=== PATIENT | male | born 1955 | race Caucasian/White ===

== ENCOUNTER 2019-01-04 05:31 | Inpatient (IN) | payer OTHER ==
[2018-12-28 10:51] LABS: HEMATOCRIT 41.3 % (42.0-52.0); MCH 31.1 pg (26.0-34.0); MCV 91.6 fL (80.0-100.0); RBC 4.5 mil/uL (4.50-6.00); RDW 12.7 % (10.5-14.5); WBC 10.9 thou/uL (4.0-11.0)
[2018-12-28 11:08] LABS: ALBUMIN 4.2 g/dL (3.4-5.0); CALCIUM 9.1 mg/dL (8.5-10.1); POTASSIUM 4.2 mmol/L (3.5-5.1); PROTIME 10.1 Seconds (9.3-11.4)
[2018-12-28 11:39] LABS: URINE BILIRUBIN NEGATIVE (Negative); URINE BLOOD NEGATIVE (Negative); URINE CLARITY CLEAR; URINE COLOR YELLOW; URINE GLUCOSE-RANDOM* NEGATIVE (Negative); URINE KETONES NEGATIVE (Negative); URINE LEUKOCYTES-REFLEX NEGATIVE (Negative); URINE NITRITE-REFLEX NEGATIVE (Negative); URINE PROTEIN (DIPSTICK) NEGATIVE (Negative); URINE SPECIFIC GRAVITY <= 1.005 (1.005-1.035); URINE UROBILINOGEN 0.2 E.U./dl (0.2-1.0)
--- NOTE | 2018-12-28 12:56 | EKG ---
[place] [address] [facility] [employer] [place] [address] ELECTROCARDIOGRAM REPORT Name: CALI VALLECILLO Room #: PRE IN ..#: [id number] ������������������ Admission: ������������������ Attend Phys: Tonny Baires MD Discharge: ������������������ Date of : 55 Report #: [id number] ����������������������������������������������������������������� [id number] THIS REPORT FOR: //name// [facility] Test Date: 2018-12-28 Test Time: 10:56:38 Pat Name: CALI VALLECILLO Department: Room: Gender: Edge Gluer: TORRES ASENCIO : 1955 Requested By: Tonny Baires Order Number: [id number] : Sami Jacobs Measurements Intervals [place] Rate: 71 P: 63 VA: 152 QRS: 58 QRSD: 86 T: 61 QT: 413 QTc: 449 Interpretive Statements Sinus rhythm early transition Nonspecific ST/T wave changes No previous ECG available for comparison Electronically Signed On 12-28-2018 12:55:59 ENVIRONMENTAL ENGINEERING MANAGER by Sami Jacobs [email or web address] ��������������������������������������������� <ELECTRONICALLY SIGNED> ���������������������������������������� By: Sami Jacobs MD ��������������������������������������������� 12/28/18 1255 1056 1056 Sami Jacobs MD /VANESSA
[~2019-01-04] VITALS: Ht 170.2 cm; Wt 90.7 kg
[~2019-01-04 05:31] MED LIST: ACETAMINOPHEN-1 EAC1 PO; CLEOCIN HCL150 MG PO; HYDROCHLOROTH12.5 M1 PO; LOVASTATIN 20 M20 MG PO; MOBIC15 MG PO; PRAVASTATIN SOD20 MG PO; PRINIVIL20 M1 PO; PROTONIX 20 MG20 M1 PO; VITAMIN D2000 UNIT PO
[2019-01-04] MEDS ORDERED: BETAMETHASONE D50 G2 TOP (11:32)
[2019-01-04 11:47] VITALS: BP 126/79
[2019-01-04 18:23] VITALS: BP 117/73
--- NOTE | 2019-01-04 20:01 | NUR ---
63 YO MALE TRANSFERED TO [facility] FROM PACU. a&OX4. IV INTACT IN FUSING FLUIDS W/O COMPS. PICI DRSG TO R HIP C/D/I. NC ORIENTED TO ROOM/ CALL LIGHT W/I REACH. DENIED ANY PAIN UPON ARRIVAL. SPOUSE AT BEDSIDE.
[2019-01-04 20:56] VITALS: BP 126/77
--- NOTE | 2019-01-05 02:04 | NUR ---
Assumed care of pt at 1900. Pt a&o x4. Post-op rt hip. PICCO dressing clean and intact. Voiding well. Pain controlled with prn pain meds. Sharif wadsworth and scd on bilaterally. Family at bedside. Call light within reach. Will continue to monitor and assist with needs.
[2019-01-05 05:14] LABS: HEMOGLOBIN 12.1 gm/dL (14.0-18.0); MCHC 32.7 g/dL (28.0-37.0); MCV 91.8 fL (80.0-100.0); RBC 4.03 mil/uL (4.50-6.00); RDW 12.8 % (10.5-14.5); WBC 14.9 thou/uL (4.0-11.0)
[2019-01-05 05:38] VITALS: BP 131/70
[2019-01-05 07:10] VITALS: BP 128/74
--- NOTE | 2019-01-05 07:38 | O ---
[facility] [place] [address] OPERATIVE REPORT Name: CALI VALLECILLO Room #: 417-I ADM IN M.R.#: [id number] Admission: 01/04/19 ������������������ Attend Phys: Tonny Baires MD Discharge: ������������������ Date of : 55 Report #: [id number] THIS REPORT FOR: //name// CC: Jim Baires DATE OF SERVICE: 01/04/2019 PREOPERATIVE DIAGNOSIS: Right hip osteoarthritis. POSTOPERATIVE DIAGNOSIS: Right hip osteoarthritis. PROCEDURE: Right total hip arthroplasty. SURGEON: Tonny Baires MD. STAY CUTTER: Mara Linda PA-C. INDICATIONS FOR STAY CUTTER: Throughout the case, extensive retraction and manipulation of the hip was required including dislocation and reduction of the hip joint. This was afforded to me by my care management assistant. ANESTHESIA: General endotracheal. IMPLANTS: [employer]hew size 15 high offset Synergy press fit stem, a size 56 R3 acetabular cup with one acetabular screw and a size 40+0 Oxinium head. ESTIMATED BLOOD LOSS: 100 mL. COMPLICATIONS: None. SPECIMENS: None. CONDITION UPON LEAVING THE OPERATING ROOM: Stable. INDICATION FOR PROCEDURE: The patient is a 63-year-old gentleman with severe right hip osteoarthritis. He had failed conservative measures for this and after discussion with him, he elected for right total hip arthroplasty. DESCRIPTION OF PROCEDURE: Risks, benefits, alternatives, complications were discussed in detail with the patient including but not limited to risk of anesthesia, risk of damage to nerves, arteries, blood vessels, risk for infection, bleeding, risk for continued hip pain, leg length discrepancy, instability and need for reoperation. Informed consent was obtained from the patient. Right hip was appropriately marked in the preoperative holding area. IV Ancef was given for preoperative antibiotics. He was brought to the [address] [address] OPERATIVE REPORT Name: CALI VALLECILLO Room #: 417-I ADM IN M.R.#: [id number] Admission: 01/04/19 ������������������ Attend Phys: Tonny Baires MD Discharge: ������������������ Date of : 55 Report #: [id number] operating room and placed in supine position on operating room table. General endotracheal anesthesia was induced without complication. He was then placed in the left lateral decubitus position with the right hip uppermost. Right hip and lower extremity were prepped and draped in normal sterile fashion. Timeout was performed properly identifying the patient and procedure as well as the instrumentation and implants. All in the operating room were in agreement. Standard posterior approach to the hip was made with 10 blade through the skin. Dissection was taken down to fascia with Bovie cautery and fascia was cleaned off with Barcenas elevator. Fresh 10 blade was used to make a fascial incision. This was taken proximally and distally with curved Umana scissor. Charnley retractor was placed. Trochanteric bursa was taken down with Bovie cautery. Piriformis tendon was identified, tagged and taken down with Bovie. Short external rotators were also taken down with Bovie cautery. Capsulotomy was made and capsule ends were tagged for later repair. Hip was dislocated and there was extensive osteoarthritis of the femoral head. Femoral neck cut was made 1 cm proximal to lesser trochanter based on preoperative templating and the femoral head was removed. Deep acetabular retractors were placed. Labrum was removed sharply. Pulvinar was removed with Bovie cautery. Acetabulum was then sequentially reamed to a size 56, at which point, there was excellent bleeding cancellous bone. A size 55 trial cup was placed, found to have a good fit. Final size 56 R3 acetabular cup was then placed and seated. One acetabular screw was placed for backup fixation and a polyethylene liner for a 40 head was placed. After this, attention was turned to the femur. This was reamed and broached up to a size 15, at which point, the size 15 broach was stable. This was trialed with a high offset neck and a 40+0 head. Hip was reduced, taken through range of motion, found to be stable, found to have equal leg lengths. Hip was dislocated and a final size 15 high offset Synergy press fit stem was placed. This was trialed again with a 40+0 head. Hip was reduced, taken through range of motion, found to be stable, found to have equal leg lengths. Hip was dislocated one last time and a final size 40+0 Oxinium head was placed. Hip was reduced, taken through range of motion, found to be stable, found to have equal leg lengths. The joint was thoroughly irrigated with normal saline. A periarticular injection consisting of morphine, ropivacaine, epinephrine and Toradol was placed around the hip joint capsule. A gram of vancomycin was placed deep in the joint. The capsule and piriformis were repaired with 0 FiberWire. The fascia was closed with 0 Vicryl, skin was closed with 2-0 Vicryl, 3-0 Monocryl. Dermabond and a MICHELLE dressing was applied. The patient tolerated this procedure well and went to recovery room under care of anesthesia postoperatively. ��������������������������������������������� <ELECTRONICALLY SIGNED> ���������������������������������������� By: Tonny Baires MD ��������������������������������������������� 01/05/19 0738 1413 1437 Tonny Baires MD /nt
[2019-01-05] MEDS ORDERED: TRI-BUFFERED A325 M1 PO (10:00)
[2019-01-05] MEDS ORDERED: NEURONTIN 300300 M1 PO (10:00)
--- NOTE | 2019-01-05 10:53 | NUR ---
INITIAL ASSESSMENT: Pt evaluated for d/c planning needs. Reviewed chart and spoke with nurse, PT, OT, pt and spouse. Pt is alert and oriented. Pt lives at home with and was independent with ADL's prior to admission to the hospital. Pt has no DME and has not had home health in the past. Pt plans on having outpatient PT at [facility]. Pt needs walker prior to discharge. Will provide. Pt plans on returning home on d/c from hospital.
[2019-01-05 16:03] VITALS: BP 144/74
[2019-01-05 16:23] VITALS: BP 128/74
--- NOTE | 2019-01-05 17:13 | NUR ---
DISCHARGE PAPERS GONE OVER WITH PATIENT AND HIS SPOUSE. SIGNED AND COPY IN CHART. RX'S GIVEN. IV ACSESS DCD. ALL BELONGINGS PACKED AND SENT WITH PATIENT.
[2019-01-05 17:19] VITALS: BP 128/74
== END 2019-01-05 17:20 | disposition home or self-care (01) | DRG 470 ==
LOC: TBA 05:31 → PRE 06:04 → 4E 18:01 → ENTRNSPT 01-05 17:10 → 4E 01-05 17:20
PROVIDERS: ADMIT Orthopaedic Surgery
PROC: 0SR906A Replacement of Right Hip Joint with Oxidized Zirconium on Polyethylene Synthetic Substitute, Uncemented, Open Approach (ICD-10-PCS; principal; 2019-01-04)
DX: M16.11 Unilateral primary osteoarthritis, right hip (principal); I10 Essential (primary) hypertension; E78.5 Hyperlipidemia, unspecified; K21.9 Gastro-esophageal reflux disease without esophagitis; Z87.891 Personal history of nicotine dependence; Z79.899 Other long term (current) drug therapy
CPT/HCPCS: 10783; 50010; 50101; 50382; 50414; 53000; 53078; 53368; 54118; 56524; 56527; 56528; 56530; 57095; 57103; 62110; 62900; 70005

== ENCOUNTER → 2020-07-05 | Outpatient (CLI) | payer OTHER ==
[~2020-07-05] MED LIST changes: +BETAMETHASONE D50 G2 TOP; +NEURONTIN 300300 M1 PO; +TRI-BUFFERED A325 M1 PO
== END ==
LOC: RAD 10:56
PROVIDERS: ATTEND Family Medicine
DX: M19.011 Primary osteoarthritis, right shoulder (principal)

== ENCOUNTER → 2020-08-16 | Outpatient (CLI) | payer OTHER ==
[2020-08-16 16:32] LABS: ABSOLUTE NEUTROPHILS 5.9 thou/uL (1.4-8.2); EOSINOPHILS 1.8 % (0.0-3.0); HEMOGLOBIN 13.9 gm/dL (14.0-18.0); MCV 93.8 fL (80.0-100.0); MONOCYTES 8.8 % (1.0-8.0); PLATELET COUNT 270 thou/uL (150-400); POLYS 57.4 % (36.0-66.0); RBC 4.48 mil/uL (4.50-6.00); RDW 13.3 % (10.5-14.5); WBC 10.2 thou/uL (4.0-11.0)
[2020-08-16 16:48] LABS: ALBUMIN 4.3 g/dL (3.4-5.0); CALCIUM 8.5 mg/dL (8.5-10.1); CREATININE 0.8 mg/dL (0.7-1.3); TOTAL BILIRUBIN 0.4 mg/dL (0.2-1.0); TOTAL PROTEIN 8.1 g/dL (6.4-8.2)
== END ==
LOC: LAB 15:52
PROVIDERS: ATTEND Family Medicine
DX: E55.9 Vitamin D deficiency, unspecified (principal); I10 Essential (primary) hypertension

== ENCOUNTER → 2020-08-30 | Outpatient (CLI) | payer OTHER | LOC: MRI 08:34 | PROVIDERS: ATTEND Family Medicine | DX: M19.011 Primary osteoarthritis, right shoulder (principal); G89.29 Other chronic pain; M25.711 Osteophyte, right shoulder; M71.311 Other bursal cyst, right shoulder ==

== ENCOUNTER → 2020-09-14 | Outpatient (CLI) | payer OTHER | LOC: CAT 13:22 | PROVIDERS: ATTEND Orthopaedic Surgery Sports Medicine | DX: Z02.1 Encounter for pre-employment examination (principal); M25.411 Effusion, right shoulder; M19.011 Primary osteoarthritis, right shoulder ==

== ENCOUNTER → 2020-10-04 | Outpatient (CLI) | payer OTHER ==
[2020-10-04 10:28] LABS: ABSOLUTE NEUTROPHILS 4.5 thou/uL (1.4-8.2); BASOPHILS 1.2 % (0.0-2.0); EOSINOPHILS 1.5 % (0.0-3.0); HEMATOCRIT 40.3 % (42.0-52.0); HEMOGLOBIN 13.6 gm/dL (14.0-18.0); LYMPHOCYTES 26.2 % (24.0-44.0); MCH 31.6 pg (26.0-34.0); MCHC 33.6 g/dL (28.0-37.0); MCV 93.9 fL (80.0-100.0); MONOCYTES 10.6 % (1.0-8.0); PLATELET COUNT 236 thou/uL (150-400); POLYS 60.5 % (36.0-66.0); RDW 13.2 % (10.5-14.5); WBC 7.5 thou/uL (4.0-11.0)
[2020-10-04 10:42] LABS: ALBUMIN 3.9 g/dL (3.4-5.0); CALCIUM 8.9 mg/dL (8.5-10.1); CREATININE 1.3 mg/dL (0.7-1.3); POTASSIUM 4.3 mmol/L (3.5-5.1); TOTAL BILIRUBIN 0.5 mg/dL (0.2-1.0); TOTAL PROTEIN 7.3 g/dL (6.4-8.2)
== END ==
LOC: LAB 10:00
PROVIDERS: ATTEND Family Medicine
DX: Z00.00 Encounter for general adult medical examination without abnormal findings (principal); R89.9 Unspecified abnormal finding in specimens from other organs, systems and tissues

== ENCOUNTER → 2020-10-10 | Outpatient (CLI) | payer OTHER ==
[2020-10-10 09:39] LABS: ABSOLUTE NEUTROPHILS 9.7 thou/uL (1.4-8.2); BASOPHILS 0.7 % (0.0-2.0); EOSINOPHILS 0.7 % (0.0-3.0); HEMOGLOBIN 14.4 gm/dL (14.0-18.0); LYMPHOCYTES 18.4 % (24.0-44.0); MCH 31.5 pg (26.0-34.0); MCHC 33.6 g/dL (28.0-37.0); MCV 93.9 fL (80.0-100.0); MONOCYTES 9.9 % (1.0-8.0); PLATELET COUNT 270 thou/uL (150-400); POLYS 70.3 % (36.0-66.0); RBC 4.58 mil/uL (4.50-6.00); RDW 12.6 % (10.5-14.5); WBC 13.8 thou/uL (4.0-11.0)
[2020-10-10 09:48] LABS: ALBUMIN 4.2 g/dL (3.4-5.0); CALCIUM 9.4 mg/dL (8.5-10.1); CREATININE 1.1 mg/dL (0.7-1.3); POTASSIUM 4.8 mmol/L (3.5-5.1); TOTAL BILIRUBIN 0.7 mg/dL (0.2-1.0); TOTAL PROTEIN 8.1 g/dL (6.4-8.2)
== END ==
LOC: LAB 09:01
PROVIDERS: ATTEND Family Medicine
DX: Z00.00 Encounter for general adult medical examination without abnormal findings (principal)

== ENCOUNTER → 2020-10-19 | Outpatient (CLI) | payer OTHER ==
[~2020-10-19] MED LIST changes: +LISINOPRIL-HCT1 EACH PO; +TIZANIDINE HCL4 M1 PO; +TRAMADOL 50 MG50 MG PO; -VITAMIN D2000 UNIT PO; +VITAMIN D350 MC3 PO
== END ==
LOC: LAB 10:13
PROVIDERS: ATTEND Orthopaedic Surgery Sports Medicine
DX: Z20.828 Contact with and (suspected) exposure to other viral communicable diseases (principal)

== ENCOUNTER 2020-10-25 11:47 | Inpatient (IN) | payer OTHER ==
[2020-10-19 13:03] LABS: URINE BILIRUBIN NEGATIVE (Negative); URINE BLOOD NEGATIVE (Negative); URINE CLARITY CLEAR; URINE COLOR YELLOW; URINE GLUCOSE-RANDOM* NEGATIVE (Negative); URINE KETONES NEGATIVE (Negative); URINE LEUKOCYTES-REFLEX NEGATIVE (Negative); URINE NITRITE-REFLEX NEGATIVE (Negative); URINE PROTEIN (DIPSTICK) NEGATIVE (Negative); URINE SPECIFIC GRAVITY <= 1.005 (1.005-1.035); URINE UROBILINOGEN 0.2 E.U./dl (0.2-1.0)
[2020-10-19 18:23] LABS: HEMATOCRIT 41.3 % (42.0-52.0); HEMOGLOBIN 13.6 gm/dL (14.0-18.0); MCH 31.5 pg (26.0-34.0); MCHC 32.9 g/dL (28.0-37.0); MCV 95.7 fL (80.0-100.0); PLATELET COUNT 247 thou/uL (150-400); RBC 4.31 mil/uL (4.50-6.00); RDW 13.1 % (10.5-14.5); WBC 10.2 thou/uL (4.0-11.0)
[2020-10-19 18:51] LABS: ABSOLUTE NEUTROPHILS 6.6 thou/uL (1.4-8.2); ATYPICAL LYMPHS 1 %
[2020-10-19 18:52] LABS: METAMYELOCYTES 1 %
[~2020-10-25] VITALS: Ht 170.2 cm; Wt 90.7 kg
--- NOTE | ~2020-10-25 | O ---
[facility] [place] [place] [address] OPERATIVE REPORT Name: CALI VALLECILLO Room #: 150-3 ADM IN M.R.#: [id number] Admission: 10/26/20 Attend Phys: Roly Pedraza Discharge: Date of : 55 Report #: [id number] THIS REPORT FOR: cc: Yomaira Fermin MD, Nora P. MD VanDenBerghe,Roly Crain MD ~ DATE OF SERVICE: 10/26/2020 PREOPERATIVE DIAGNOSES: Right shoulder pain, osteoarthritis with posterior glenoid bone loss, biceps tendinopathy and partial thickness tearing. POSTOPERATIVE DIAGNOSES: Right shoulder pain, osteoarthritis with posterior glenoid bone loss, biceps tendinopathy and partial thickness tearing. PROCEDURES PERFORMED: Right total shoulder arthroplasty with STEPTECH augmented glenoid and open biceps tenodesis. SURGEON: Roly Varela MD CANCER GENETIC COUNSELOR: Lyssa Tubbs PA-C ANESTHESIA: General with preoperative ultrasound-guided interscalene block. FLUIDS: 350 mL crystalloid. ESTIMATED BLOOD LOSS: Approximately 75 mL. IMPLANTS UTILIZED: DePuy [employer] Unite size 14 stem with a 52 x 18 mm eccentric humeral head, 48 +5 STEPTECH APG cemented glenoid. DESCRIPTION OF PROCEDURE: After proper identification of the patient and operative site in preoperative holding area, the operative site was signed by myself. Prophylactic antibiotics given. The patient elected to receive a block after reviewing the risks, benefits, alternatives and potential complications with Dr. Diaz. After a satisfactory block, the patient was brought back to the operative suite after induction of satisfactory general anesthesia. The patient was carefully positioned in the beach chair with head of bed elevated approximately 40 degrees. Anterior deltopectoral approach had been planned. The right upper extremity was sterilely prepped and draped in the usual manner and placed within a Caterva limb positioning system. Head and neck were carefully positioned in neutral position. Final draping was with an Ioban drape. Anterior deltopectoral approach was planned. Skin was incised sharply. Full-thickness skin flaps were developed. Deltopectoral interval was identified. Cephalic vein was retracted laterally and protected throughout the entire procedure. Subdeltoid space was carefully opened. A [facility] deltoid [address] [address] OPERATIVE REPORT Name: VALLECILLOCALI SYLVESTER Room #: 150-3 ADM IN M.R.#: [id number] Admission: 10/26/20 Attend Phys: Roly Pedraza Discharge: Date of : 55 Report #: [id number] retractor was used to retract the soft tissues and the upper border of the pectoralis major was carefully released. Long head of the biceps tendon demonstrated significant tenosynovitis more proximally and partial thickness tearing within the bicipital groove. It was tenodesed to the undersurface of the pectoralis major using #2 FiberWire. Proximal end of the tendon was then followed. Bicipital groove had been opened as well as the rotator interval. Anterior circumflex vessels were identified, ligated, cauterized and a lesser tuberosity osteotomy was performed with a flexible osteotome. This was then tagged with #2 FiberWire. Supraspinatus and infraspinatus appeared intact and amenable to primary total shoulder arthroplasty. The anterior osteophytes of the humeral head were carefully removed, 135-degree cutting guide was utilized and this humeral head osteotomy was performed in approximately 30 degrees of retroversion, which matched his [place] version. This was performed with an oscillating saw. The humeral head measured 52 x 18 mm head provided the best fit. Cuff remained intact following the cut, any peripheral osteophytes were then carefully removed. This was reamed by hand sequentially up to a size 14 stem. Trial implant was placed. Protection plate was threaded on to this and then attention was divided to the glenoid. The anterior capsular tissues were carefully spread of the glenoid with a right angle clamp with the axillary nerve identified and protected throughout the entire procedure. The anterior capsule was then resected. The remaining biceps tendon and labrum was resected circumferentially. Inferiorly, this was done carefully right of the glenoid to minimize any risk to the surrounding neurovascular structures. After there was excellent glenoid exposure, the wound was again thoroughly irrigated with normal saline and a +7 STEPRe[employer]te [employer] guide was utilized to place the guide pin. Its position was verified manually as well as visually. With this positioned in a satisfactory manner, the glenoid was reamed up to approximately the 50 yard line and then any remaining soft tissue was carefully debrided. After this reaming, step drill was utilized and then the STEPTECH guide was carefully positioned and secured with the breakaway pins. The oscillating reamer as well as a round bur were used to remove the step portion of the bone and some of the more peripheral bone that was quite sclerotic in nature was removed with a round bur. This was carefully and delicately performed until the step was well seated and matched the Materialise preoperative planning based on the CT scan. The peripheral pegs were drilled using the appropriate guide starting posteroinferior and anteroinferior followed by the superior length derotation pegs were utilized. The posterior inferior peg was uncontained. The remainder are more contained. The joint was thoroughly irrigated with normal saline and after this was thoroughly irrigated, FloSeal was utilized after the trial implant had been placed and was noted to be fully seated. Trial implant was removed. This was irrigated. FloSeal was utilized. Bone graft was prepared to the 48 +5 STEPTECH glenoid and cement was prepared on the back table. The DePuy bone cement was prepared on the back table, placed in a Tuohy syringe and after the joint was irrigated and the FloSeal was irrigated free. This was placed in the superior and anterior holes under pressurization with the Tuohy syringe. Next, the bone [facility] [address] [place] [address] OPERATIVE REPORT Name: CALI VALLECILLO Room #: 150-3 ADM IN M.R.#: [id number] Admission: 10/26/20 Attend Phys: Roly Pedraza Discharge: Date of : 55 Report #: [id number] grafted augmented glenoid was carefully advanced into position, it was impacted, held firmly in place and was well seated and had excellent fit. After the cement had cured, attention was then divided to the humerus and a 52 +8 humeral eccentric head provided the best overall fit and recreation of the proximal humeral anatomy. The humeral head was well centered had approximately 50% translation posteriorly. Trial implants were removed. Humerus was thoroughly irrigated with normal saline. Four drill holes were placed in the anterior cortex of the humerus where #2 FiberWire was passed. The stem was assembled on the back table, carefully impacted into position with the inferior 2 sutures being placed around the stem. The final implant head was then carefully impacted into position. Shoulder was reduced after it was thoroughly irrigated with normal saline. Subscapularis was repaired with modified Savage-Moose technique with four #2 FiberWires and then the lateral portion of the rotator interval was closed with #2 FiberWire. After another irrigation, the joint was dried. One gram of vancomycin powder had been utilized deep, half at superficial. Deltopectoral interval was closed with 0 Vicryl, 2-0 Vicryl for the subcutaneous tissues, final skin closure was with running 4-0 Monocryl. The patient could easily externally rotated 45 degrees without any tension on the subscapularis repair. Dermabond was applied as well as sterile dressing and a sling and abduction pillow, which will be utilized for 4 weeks postoperatively. A qualified special education teaching assistant utilized throughout the entire procedure to aid in patient limb positioning, visualization and retraction of the soft tissues, instrument passage, closure and sling and dressing application. Due to the STEPTECH augmented glenoid component of this procedure, significant additional surgical time was required to complete this portion of the procedure. By: 1519 1603 Roly Varela MD /basilio
[2020-10-26 11:15] VITALS: BP 157/99
[2020-10-26 16:13] VITALS: BP 148/92
[2020-10-26 17:07] VITALS: BP 148/90
--- NOTE | 2020-10-26 17:19 | NUR ---
PATIENT ADMITTED FROM OR WITH RIGHT TOTAL SHOULDER REPLACEMENT, PATIENT HAS AQUACEL DRESSING TO RIGHT SHOULDER, SCD'S, AND POLAR CARE, NO PAT HOSE IN PLACE. PATIENT HAD A BLOCK, NO C/O PAIN AT THIS TIME. PATIENT DRINKS 6-12 BEERS DAILY, NO S/S OF WITHDRAWAL AT THIS TIME. LEFT HAND IV IN PLACE, LR STARTED AT 100CC/HR. ADMISSION COMPLETED, REPORT GIVEN TO HERIBERTO. PATIENT STATES HE HAS NOT HAD B/P MEDS IN 2 DAYS, THIS RN NOTIFIED HERIBERTO/RN OF NEEDING B/P MEDS ORDERED. AT BEDSIDE.
[2020-10-26 20:30] VITALS: BP 113/74
--- NOTE | 2020-10-27 03:17 | NUR ---
ASSUMED CARE OF PT AT 1900. PT IS A/O X4 BUT FORGETFUL AT TIMES. DRESSING TO RIGHT SHOULDER IS C/D/I WITH NO DRAINAGE NOTED. IMMOBILIZATION SLING TO RIGHT ARM IN PLACE. POLAR PACK CONNECTED. PT STATES THAT FIRST 2 FINGERS HAVE BEEN TINGLY SINCE BEFORE SURGERY. DOES C/O PAIN TO RIGHT SHOULDER. PRN PAIN MEDICATION GIVEN. REMAINS ON 2 LITERS O2 NC. SCD'S IN PLACE. URINAL AT THE BEDSIDE. FALL PRECAUTIONS ARE IN PLACE, CALL LIGHT IS WITHIN REACH. AT THIS TIME PT IS LYING IN HIS BED WITH HOB ELEVATED AND APPEARS TO BE SLEEPING.WILL CONTINUE TO MONITOR.
[2020-10-27 03:30] VITALS: BP 169/120
[2020-10-27 04:55] LABS: HEMATOCRIT 38.6 % (42.0-52.0); HEMOGLOBIN 12.7 gm/dL (14.0-18.0)
[2020-10-27 04:56] LABS: POTASSIUM 4.3 mmol/L (3.5-5.1)
[2020-10-27 07:35] VITALS: BP 126/98
--- NOTE | 2020-10-27 09:54 | NUR ---
ASSESSMENT: CM REVIEWED CHART AND MET WITH PT. PT IS ALERT AND ORIENTED X4. PT IS S/P SHOULDER REPLACEMENT. PT REPORTS LIVING IN A HOUSE WITH HIS . PT REPORTS ABOUT 3 STEPS WITH HANDRAIL TO ENTER THE HOME. PT REPORTS BEING FULLY INDEPENDENT WITH ADLS AND AMBULATION. PT REPORTS HE DOES HAVE A WALKER AT HOME FROM PAST SURGERY. PT STATES HE ANTICIPATES DOING OUTPATIENT THERAPY AT [facility]. PT REPORTS HE WILL HAVE NO NEEDS FROM . CM SPOKE WITH PHYSICAL THERAPY WHO REPORTED PT DID WELL. PT WILL DISCHARGE ONCE CLEARED. PT DOES NOT ANTICIPATE ANY NEEDS FROM .
--- NOTE | 2020-10-27 11:01 | NUR ---
Assumed care of pt at 0700. Pt a&ox4. Pain increased after physical therapy. Dressing c/d/i. Shoulder immobilizer in place. IVF infusing. Able to void without issues. Polar care in place. Call light within reach. Will continue to monitor.
[2020-10-27 16:40] VITALS: BP 162/104
[2020-10-27 17:52] VITALS: BP 121/72
[2020-10-27 19:20] VITALS: BP 163/92
--- NOTE | 2020-10-28 02:40 | NUR ---
ASSUMED CARE OF PT AT 1900. PT IS A/O X4 AND IS UP SBA TO THE BR. AQUACEL DRSG TO RIGHT SHOULDER IS C/D/I. POLAR PACK IN PLACE. PT C/O PAIN. PRN PAIN MEDICATION GIVEN DIRECTED AND BREAK THROUGH PAIN MEDICATION GIVEN ONCE THIS SHIFT. PT IS CURRENTLY ON ROOM AIR. SCD'S AND FALL PRECAUTIONS ARE IN PLACE, CALL LIGHT IS WITHIN REACH. WILL CONTINUE TO MONITOR.
[2020-10-28 07:05] VITALS: BP 125/90
--- NOTE | 2020-10-28 10:16 | NUR ---
Assumed care of pt at 0700. Pt a&ox4. Dressing on rt shoulder c/d/i. Pain controlled with prn pain meds. Polar care in place. Shoulder immpbilizer in place. Possibly discharging to home later today. Call light within reach. Will continue to monitor.
[2020-10-28 13:50] VITALS: BP 125/90
--- NOTE | 2020-10-30 07:53 | EKG ---
[address] [place] [address] ELECTROCARDIOGRAM REPORT Name: CALI VALLECILLO ALAN Room #: 441-P [facility] IN M.R.#: [id number] Admission: 10/26/20 Attend Phys: Roly Pedraza Discharge: 10/28/20 Date of : 55 Report #: [id number] [facility] Test Date: 2020-10-19 Test Time: 12:58:06 Pat Name: CALI VALLECILLO Department: Room: Gender: M Rental Agent: TORRES ASENCIO : 1955 Requested By: Roly Varela Order Number: [id number] MD: Sami Jacobs Measurements Intervals [place] Rate: 76 P: 65 [place]: 152 QRS: 45 QRSD: 86 T: 51 QT: 388 QTc: 437 Interpretive Statements Sinus rhythm Abnormal R-wave progression, early transition Baseline wander in lead(s) V4,V5 Compared to ECG 12/28/2018 10:56:38 No significant change Electronically Signed On 10-19-2020 13:54:17 COPYIST by Sami Jacobs [email or web address] <ELECTRONICALLY SIGNED> By: Sami Jacobs MD 10/19/20 1354 1258 1258 Sami Jacobs MD /EPI
== END 2020-10-28 14:34 | disposition home or self-care (01) | DRG 483 ==
LOC: EDSTATUS 11:47 → PRE 12:33 → OR 13:41 → PRE 16:40 → TBA 10-26 10:00 → PRE 10-26 11:14 → 4S 10-26 16:10
PROVIDERS: Physician Assistant Surgical; ADMIT Orthopaedic Surgery Sports Medicine; ATTEND Orthopaedic Surgery Sports Medicine
PROC: 0LS30ZZ Reposition Right Upper Arm Tendon, Open Approach (ICD-10-PCS; principal; 2020-10-26)
PROC: 0RRJ0JZ Replacement of Right Shoulder Joint with Synthetic Substitute, Open Approach (ICD-10-PCS; principal; 2020-10-26)
DX: M19.011 Primary osteoarthritis, right shoulder (principal); M75.21 Bicipital tendinitis, right shoulder; Z79.82 Long term (current) use of aspirin; Z79.899 Other long term (current) drug therapy
CPT/HCPCS: 10102; 50010; 50101; 50172; 50386; 50417; 50697; 50733; 50935; 51320; 51751; 52001; 52138; 53000; 53078; 53342; 54118; 56521; 56524; 56525; 56526; 56530; 57095; 57103; 62110; 62900; 64039; 70005

== ENCOUNTER → 2021-01-12 | Outpatient (CLI) | payer OTHER ==
[2021-01-12 09:40] LABS: EOSINOPHILS 1.2 % (0.0-3.0); HEMATOCRIT 45.1 % (42.0-52.0); HEMOGLOBIN 14.7 gm/dL (14.0-18.0); LYMPHOCYTES 22.4 % (24.0-44.0); MCHC 32.6 g/dL (28.0-37.0); MONOCYTES 8.4 % (1.0-8.0); PLATELET COUNT 238 thou/uL (150-400); WBC 8.9 thou/uL (4.0-11.0)
[2021-01-12 09:56] LABS: ANION GAP 7 mmol/L (7-16); BUN 12 mg/dL (7-18); CALCIUM 9.1 mg/dL (8.5-10.1); CHLORIDE 101 mmol/L (98-107); CHOLESTEROL 204 mg/dL (<200); CO2 28 mmol/L (21-32); GLUCOSE 115 mg/dL (74-106); HDL CHOLESTEROL 83 mg/dL (>40); LDL CHOLESTEROL 108 mg/dL (<100); POTASSIUM 4.6 mmol/L (3.5-5.1); SGOT 19 U/L (15-37); SGPT 28 U/L (30-65); SODIUM 136 mmol/L (136-145); TC:HDL 2.5 Ratio (Not establshd); TOTAL BILIRUBIN 0.3 mg/dL (0.2-1.0); TOTAL PROTEIN 7.6 g/dL (6.4-8.2); TRIGLYCERIDE 69 mg/dL (<150); URIC ACID* 7.1 mg/dL (3.5-7.2); VLDL 14 mg/dL (<40)
[2021-01-12 23:06] LABS: GLYCOHEMOGLOBIN (HGB A1C) 5.4 % (4.8-5.6)
== END ==
LOC: ULTRA 09:13
PROVIDERS: ATTEND Family Medicine
DX: M19.071 Primary osteoarthritis, right ankle and foot (principal); R73.9 Hyperglycemia, unspecified; M10.9 Gout, unspecified; D72.829 Elevated white blood cell count, unspecified; N40.0 Benign prostatic hyperplasia without lower urinary tract symptoms; E78.5 Hyperlipidemia, unspecified; M19.90 Unspecified osteoarthritis, unspecified site

== ENCOUNTER → 2021-07-31 | Outpatient (CLI) | payer OTHER ==
[2021-07-31 11:09] LABS: HEMATOCRIT 43.3 % (42.0-52.0); HEMOGLOBIN 14.2 gm/dL (14.0-18.0); MCH 30.7 pg (26.0-34.0); MCHC 32.8 g/dL (28.0-37.0); MCV 93.5 fL (80.0-100.0); PLATELET COUNT 282 thou/uL (150-400); RBC 4.64 mil/uL (4.50-6.00); RDW 12.8 % (10.5-14.5); WBC 10.6 thou/uL (4.0-11.0)
[2021-07-31 11:36] LABS: ALBUMIN 4.1 g/dL (3.4-5.0); ANION GAP 14 mmol/L (7-16); BUN 13 mg/dL (7-18); CALCIUM 8.7 mg/dL (8.5-10.1); CHLORIDE 103 mmol/L (98-107); CHOLESTEROL 219 mg/dL (<200); CO2 23 mmol/L (21-32); GLUCOSE 105 mg/dL (74-106); HDL CHOLESTEROL 77 mg/dL (>40); LDL CHOLESTEROL 122 mg/dL (<100); POTASSIUM 4.1 mmol/L (3.5-5.1); SGOT 27 U/L (15-37); SGPT 43 U/L (30-65); SODIUM 140 mmol/L (136-145); TC:HDL 2.8 Ratio (Not establshd); TOTAL BILIRUBIN 0.4 mg/dL (0.2-1.0); TOTAL PROTEIN 7.5 g/dL (6.4-8.2); TRIGLYCERIDE 102 mg/dL (<150); URIC ACID* 8.4 mg/dL (3.5-7.2); VLDL 20 mg/dL (<40)
[2021-07-31 12:04] LABS: ABSOLUTE NEUTROPHILS 5.8 thou/uL (1.4-8.2); PLATELET ESTIMATE NORMAL
== END ==
LOC: LAB 09:34
PROVIDERS: ATTEND Family Medicine
DX: E78.5 Hyperlipidemia, unspecified (principal); M1A.9XX0 Chronic gout, unspecified, without tophus (tophi)

== ENCOUNTER → 2021-09-13 | Outpatient (CLI) | payer OTHER | LOC: LAB 09:22 | PROVIDERS: ATTEND Family Medicine | DX: M1A.9XX0 Chronic gout, unspecified, without tophus (tophi) (principal) ==